=== PATIENT | female | born 1995 | race African-American/Black ===

== ENCOUNTER 2019-04-10 19:19 | Emergency (ER) | payer MEDICARE, OTHER ==
[~2019-04-10] VITALS: Ht 170.2 cm; Wt 94.0 kg
[~2019-04-10 19:19] MED LIST: MOTRIN
[2019-04-10 23:30] LABS: BASOPHILS % 0.6 % (0.0-2.0); HEMATOCRIT. 41.5 % (36.0-48.0); HEMOGLOBIN. 13.8 g/dL (12.0-16.0); LYMPHOCYTES % 35.9 % (20.0-50.0); MEAN CORPUSCULAR HEMOGLOBIN 29.3 pg (28.0-32.0); MEAN PLATELET VOLUME 9.5 fl (7.4-10.4); MONOCYTES % 6.7 % (2.0-8.0); NEUTROPHILS % 55.8 % (40.0-76.0); PLATELET 237 x1000/uL (130-400); RED BLOOD CELL COUNT 4.71 mill/uL (4.2-5.4); RED CELL DISTRIBUTION WIDTH 12.7 % (11.6-14.6)
[2019-04-10 23:33] LABS: CHLORIDE 100 mEq/L (98-107)
[2019-04-11] MEDS ORDERED: INSULIN LISPRO 100 UNITS/ML SUBCUT ONE (00:15)
[2019-04-11 00:34] VITALS: BP 122/87
== END 2019-04-11 00:45 | disposition home or self-care (01) ==
LOC: ER 19:19
DX: R00.2 Palpitations (principal); E11.65 Type 2 diabetes mellitus with hyperglycemia; I10 Essential (primary) hypertension; F12.10 Cannabis abuse, uncomplicated; F17.210 Nicotine dependence, cigarettes, uncomplicated; Z71.6 Tobacco abuse counseling
CPT/HCPCS: 36415; 80053; 81025; 82962; 84443; 84484; 85025; 93005; 96372; 99284; 99406; J1815

== ENCOUNTER 2019-07-21 15:25 | Emergency (ER) | payer OTHER ==
[~2019-07-21] VITALS: Ht 167.6 cm; Wt 70.0 kg
[2019-07-21] MEDS ORDERED: KETOROLAC 30MG/ML VIAL IM ONE (16:45)
[2019-07-21 18:00] VITALS: BP 138/89
== END 2019-07-21 18:39 | disposition home or self-care (01) ==
LOC: ER 15:25
DX: M25.511 Pain in right shoulder (principal); V49.9XXA Car occupant (driver) (passenger) injured in unspecified traffic accident, initial encounter; Y93.89 Activity, other specified; Y92.89 Other specified places as the place of occurrence of the external cause; Y99.8 Other external cause status; F12.10 Cannabis abuse, uncomplicated; E11.9 Type 2 diabetes mellitus without complications; I10 Essential (primary) hypertension
CPT/HCPCS: 29105; 71045; 73030; 73060; 81025; 96372; 99284; J1885